=== PATIENT | female | born 1970 | race Caucasian/White ===

== ENCOUNTER 2017-05-07 04:20 | Emergency (ER) | payer OTHER ==
[~2017-05-07] VITALS: Ht 162.6 cm; Wt 54.4 kg
[2017-05-07 04:29] VITALS: BP 135/84
--- NOTE | 2017-05-07 04:33 | NUR ---
Patient ambulated to bed 01.
--- NOTE | 2017-05-07 04:38 | NUR ---
46 Y/O F W/C/O SUPRAPUBIC HERNIA X 3 YEARS GOTTEN WORSE X YESTERDAY WITH NAUSEA. ER MADE AWARE.
[2017-05-07] MEDS ORDERED: ONDANSETRON 4 MG/2 ML VIAL IM ONE (04:50)
[2017-05-07] MEDS ORDERED: MORPHINE SULFATE 10 MG/ML SYR IM ONE (04:50)
--- NOTE | 2017-05-07 04:50 | NUR ---
TONY LIZARRAGA AT BEDSIDE EVALUATING PT.
--- NOTE | 2017-05-07 06:17 | NUR ---
TONY LIZARRAGA AT BEDSIDE PERFORMED A PROCEDURE. PT TOLERATED WELL.
[2017-05-07 06:32] VITALS: BP 118/58
--- NOTE | 2017-05-07 06:32 | NUR ---
Patient discharged with v/s stable. Written and verbal after care instructions given and explained. Patient alert, oriented and verbalized understanding of instructions. Ambulatory with steady gait. All questions addressed prior to discharge. ID band removed. Patient advised to follow up with PMD IN 24-48 HRS OR RETURN TO ER IF CONDITION WORSENS. Rx of IBUPROFEN, AND COLACE given. Patient educated on indication of medication including possible reaction and side effects. Opportunity to ask questions provided and answered.
== END 2017-05-07 06:32 | disposition home or self-care (01) ==
LOC: MED 04:20
DX: K40.90 Unilateral inguinal hernia, without obstruction or gangrene, not specified as recurrent (principal); Z88.6 Allergy status to analgesic agent
CPT/HCPCS: 81025; 96372; 99284; J2270; J2405